=== PATIENT | male | born 1985 | race Caucasian/White ===

== ENCOUNTER 2017-10-16 08:40 | Inpatient (IN) | END 2017-10-19 19:05 | disposition home or self-care (01) | DRG 378 ==

== ENCOUNTER 2018-10-20 16:35 | Emergency (ER) | payer MEDICAID, OTHER ==
[~2018-10-20] VITALS: Ht 167.6 cm; Wt 98.0 kg
[~2018-10-20 16:35] MED LIST: CEPH-443 PO; CIPR500T4 PO; IBUP-1542 PO; METR500T PO; SULF1TAB31 PO
[2018-10-20 16:38] VITALS: BP 137/73; PULSE 88; RESP 18; Ht 167.6 cm; Wt 98.0 kg
[2018-10-20] MEDS ORDERED: IBUPROFEN 600 MG TAB PO ONE (17:00)
[2018-10-20] MEDS ORDERED: HYDROCODONE/APAP (5/325) TAB PO ONE (17:00)
[2018-10-20] MEDS ORDERED: CEPHALEXIN 500 MG CAP PO ONE (18:30)
[2018-10-20] MEDS ORDERED: TRIMETHOPRIM/SULFAMETHOX (DS) TAB PO ONE (18:30)
== END 2018-10-20 18:41 | disposition home or self-care (01) ==
LOC: FTE 16:35
DX: L03.113 Cellulitis of right upper limb (principal)
CPT/HCPCS: 73130; Z7502; Z7610